=== PATIENT | female | born 1940 ===

== ENCOUNTER 2025-05-23 13:01 | Outpatient (AMB) | payer OTHER, SELFPAY ==
--- NOTE | 2025-05-23 13:39 | MHC.OFFVIS ---
Intake Visit Reasons: Dementia Allergies No Known Allergies Allergy (Verified 05/20/25 08:49) HPI Comments Details: 84 yo woman with DM, CHF, CRI, and dementia. She moved to this area to live close to her daughter in 2020 who provided history of cognitive difficulties with her mother. [facility] Medical History (Updated 05/23/25 @ 13:45 by Gisela Vilchis MD) Multifactorial dementia Arthritis Obesity Alzheimer dementia Physical Exam Neuro Other: Mental Status: Alert and awake with normal spontaneity of speech fluency comprehension and affect. Cranial Nerves: CN II: Visual thomas full to confrontation, visual acuity intact. CN III, IV, : Pupils equal, round, reactive to light and accommodation. Extraocular movements are normal. CN V: Facial sensation is normal. CN VII: Facial movements symmetrical. CN VIII: Hearing intact to bedside conversation is normal. CN IX, X: Palate elevates symmetrically. CN XI: Shoulder shrug and head turn symmetrical. CN XII: Tongue midline without atrophy or fasciculations. Extrapyramidal: Full facial expressions and blinking. No rigidity. Movements are appropriate with no tremor or abnormality. Speech: Normal; no dysarthria or tremor. Assessment & Plan Assessment & Plan (1) Alzheimer dementia: Code(s): G30.9 - Alzheimer's disease, unspecified; F02.80 - Dementia in other diseases classified elsewhere, unspecified severity, without behavioral disturbance, psychotic disturbance, mood disturbance, and anxiety Category: Medical Qualifiers: Alzheimer's disease onset: late onset Dementia severity: moderate Dementia behavioral or psychological symptom: with anxiety Qualified Code(s): G30.1 - Alzheimer's disease with late onset; F02.B4 - Dementia in other diseases classified elsewhere, moderate, with anxiety Plan Impression: Moderate dementia probably multifactorial or Alzheimer type Rec; Memantine 10mg bid Sertraline 25mg a day Medications: New memantine 10 mg PO BID 180 tabs 1RF sertraline 25 mg PO DAILY 90 tabs 1RF Coding Level of Care Code Est Pt Level 4 (90102) Diagnoses Moderate late onset Alzheimer's dementia with anxiety G30.1; F02.B4 Alzheimer's disease onset: late onset Dementia severity: moderate Dementia behavioral or psychological symptom: with anxiety
--- OUTSIDE RECORDS SUMMARY | 2025-05-23 14:16 | XMS_ITS | CCD ---
Author Name Interface, [id number] lity Address [address] [facility] , [facility] [address] [place] [address] Organization [facility] Address [address] [place] [address] Care Team Providers Care Clinical Implementation Specialist Name Role Phone Peter HAGEN, Dinh Adame Unavailable Allergies and Adverse Reactions Care Plan Reason for Visit Functional Status Medications Problems Social History
--- OUTSIDE RECORDS SUMMARY | 2025-05-23 14:16 | XMS_ITS ---
Author Name Interface, [id number] lity Address [address] [place] [address] , [facility] [address] [place] [address] Organization [facility] Address [address] [place] [address] Allergies and Adverse Reactions Plan Reason for Visit Encounters Medications Problems Vital Signs
== END 2025-05-23 13:49 | disposition home or self-care (01) ==
LOC: HO.HSM 13:01
PROVIDERS: PCP Internal Medicine; Visit Provider Psychiatry & Neurology Neurology
DX: G30.1 Alzheimer's disease with late onset (principal); F02.B4 Dementia in other diseases classified elsewhere, moderate, with anxiety
CPT/HCPCS: 99214